=== PATIENT | male | born 1985 | race Caucasian/White ===

== ENCOUNTER 2025-06-15 18:08 | Inpatient (IN) | payer MEDICARE, MEDICAID, SELFPAY ==
[2025-06-15] VITALS (8 sets, daily range): BP systolic 140–149; BP diastolic 87–92; PULSE 83–111; RESP 17–98; TEMP 36.6–36.8; O2SAT 93–99; BMI 29.2
--- NOTE | 2025-06-15 18:17 | PD.EDADULT ---
ED General RME/HPI General Chief complaint: Seizure Stated complaint: Seizures Time Seen by Provider: 06/15/25 18:15 Arrival date/time: 06/15/25 18:08 CC: Seizure, hypoglycemia HPI patient has a history of seizures is on Keppra 750 mg tablets 2 twice a day, as well as Vimpat. Last seizure was approximately 1 year ago. EMS report finding him postictal blood glucose was 19, patient was given D10 recheck was 190 currently the patient is awake alert oriented nontoxic-appearing does not have any postictal symptoms. States he is on sliding scale for his diabetes and they have been adjusting his medications . Patient denies any physical pain at this time. Patient his primary care doctor is with [facility] Note: Patient took all of his prescribed morning medications including Keppra and Vimpat Related Data Home Medications ?Medication ?Instructions ?Recorded ?Confirmed Albuterol Sulfate HFA (INHALER) 2 puff inhalation Q6HR PRN 11/30/14 05/02/18 (PROVENTIL HFA (INHALER)) BREATHING #0 inhalations Amylase/Lipase/Protease (Creon Dr 5 tab PO QDWM #0 caps 11/30/14 05/02/18 24,000 Units Capsule) Hydrocodone/Acetaminophen (Lortab 1 ea PO Q4HR #0 tabs 11/30/14 05/02/18 10-325 mg Tablet) Promethazine Hcl/Dextromethorphan 1 tsp PO Q4-6HRPRN PRN COUGHING ##0 11/30/14 05/02/18 SYRUP * (PHENERGAN DM SYRUP *) Tobramycin NEB * (DAYSI 300 MG/5 ML 300 mg inhalation BID #0 ea 11/30/14 05/02/18 *) albuterol sulfate 90 mcg/actuation 2 puff inhalation TID ##0 11/30/14 05/02/18 aerosol inhaler (ProAir HFA) carbamazepine 200 mg tablet 200 mg PO TID ##0 11/30/14 05/02/18 (Epitol) dornase sushil 1 mg/mL solution for 2.5 mg inhalation QDAY ##0 11/30/14 05/02/18 inhalation (Pulmozyme) levetiracetam 250 mg tablet 100 mg PO TID #0 tabs 11/30/14 05/02/18 (Keppra) metformin 500 mg tablet 1,000 mg PO BIDAC #0 tabs 11/30/14 05/02/18 (Glucophage) montelukast 10 mg tablet 10 mg PO HS #0 tabs 11/30/14 05/02/18 (Singulair) naproxen 500 mg tablet (Naprosyn) 500 mg PO BIDWM #0 tabs 11/30/14 05/02/18 Nutritional Formula (Lactose Free) 1 can PO QID 30 days ##0 12/08/14 05/02/18 * (GLUCERNA *) Amylase/Lipase/Protease (Creon Dr 4 cap PO BIDWM ##0 05/15/17 05/02/18 24,000 Units Capsule) Previous Rx's ?Medication ?Instructions ?Recorded cyclobenzaprine 10 mg tablet 10 mg PO TID #20 tabs 03/27/23 meloxicam 7.5 mg tablet 7.5 mg PO QDAY #10 tabs 03/27/23 Allergies Allergy/AdvReac Type Severity Reaction Status Date / Time ciprofloxacin Allergy Unknown Verified 09/18/21 18:05 levofloxacin Allergy Unknown Verified 09/18/21 18:05 Review of Systems Review of Systems Narrative Review of Systems: GEN: No fever, no chills, no weight loss EYES: No discharge, no visual changes, no pain HEENT: No ear pain, no congestion, no sore throat PULM: No shortness of breath, no cough, no congestion CV: No chest pain, no dyspnea on exertion, no palpitations GI: No nausea, no vomiting, no diarrhea, no pain, no constipation : No frequency, no urgency, no dysuria MUSC/SKEL: No joint pain, no back pain SKIN: No rash PSYCH: No hallucinations, no depression HEME/LYMPH: No easy bleeding or bruising tendencies NEURO: No weakness, no headache Past Medical History Past Medical History NEUROLOGIC: Positive Neurological Disorders and Epilepsy CARDIAC: Negative Congestive Heart Failure RESPIRATORY: Positive Cystic Fibrosis; Negative Chronic Obstructive Pulmonary Disease (COPD) GENITOURINARY: Negative Renal Disease ENDOCRINE: Positive Diabetes Mellitus Type 1; Negative Diabetes Mellitus Type 2 Surgical History SURGICAL: Positive Abdominal Surgery and Bowel Surgery Social History SMOKING STATUS: Never smoker ED Exam Narrative Physical exam: [General: Appears not in any acute distress Head normocephalic HEENT: Within acceptable limits Neck is supple nontender Chest equal chest rise nontender to palpation Respiratory: Clear to auscultation no wheezes crackles or rubs CV: Rate rhythm is regular no murmurs rubs or clicks Abdomen is soft nontender no masses positive bowel sounds all 4 quadrants Back: No CVA tenderness no spinous process tenderness from cervical spine thoracic and lumbar spine Skin: Intact no petechiae rash induration ulceration or crepitus Extremities: Moving all extremity against resistance cap refill less than 2 seconds neurosensory intact Neuro: Awake alert oriented x3 Glascow coma 15 no focal deficits] Course Course Course Narrative: Upon initial assessment after EMS the patient's blood glucose was 194. At 1845 patient's blood sugar dropped to 31, patient was given 1 amp of D50 started on D5 at 125 an hour. At 1950, blood sugar is 85. This time is concerned as the patient had received an amp of D50 and is on D5 at 125 an hour when anticipating the sugar being much higher. Patient's case discussed with Dr. Young, attending who agrees patient needs to be admitted for hypoglycemia. Quality Measures none Orders Category Date Time Status Glucose [Bedside Blood Glucose] Q1HR Care 06/15/25 18:15 Active B-Type Natriuretic Peptide Stat Lab 06/15/25 18:36 Completed CBC Stat Lab 06/15/25 18:36 Completed Comprehensive Metabolic Panel Stat Lab 06/15/25 18:36 Completed Drug Screen,Urine Stat Lab 06/15/25 18:16 Ordered LDH (Lactate Dehydrogenase) Stat Lab 06/15/25 18:36 Completed Magnesium Stat Lab 06/15/25 18:36 Completed Urinalysis, C/S if Indicated Stat Lab 06/15/25 18:16 Ordered Dextrose 5%-0.45% Ns [D5-1/2Ns] 500 ml Med 06/15/25 18:45 Active IV 125 mls/hr Dextrose 50% Syr [D50w Syringe Abboject] Med 06/15/25 18:46 Discontinued 50 ml .ROUTE .STK-MED ONE Dextrose 50% Syr [D50w Syringe Abboject] Med 06/15/25 18:44 Discontinued 50 ml IVP X1 ONE levETIRAcetam INJ [Keppra Inj] Med 06/15/25 18:31 Discontinued 1,000 mg IVP X1 ONE Vital Signs Vital signs: Vital Signs Temperature 97.8 F 06/15/25 18:54 Pulse Rate 87 06/15/25 18:54 Respiratory Rate 17 06/15/25 18:54 Blood Pressure 142/87 H 06/15/25 18:54 Pulse Oximetry (%) 96 06/15/25 18:54 Oxygen Delivery Method Room Air 06/15/25 18:54 Discharge Plan Plan Patient Disposition: HOME (Self Care) Patient condition on transfer: Stable Prescriptions/Referrals Prescriptions/Med Rec: No Action Albuterol Sulfate HFA (INHALER) (PROVENTIL HFA (INHALER)) 8.5 GM HFA.AER.AD 2 puff Inhalation Q6HR PRN (Reason: BREATHING) Qty: 0 Amylase/Lipase/Protease (Trace Mccormick 24,000 Units Capsule) 1 EACH CAPSULE. 5 tab PO QDWM Qty: 0 metformin [Glucophage] 500 MG tablet 1,000 mg PO BIDAC Qty: 0 carbamazepine [Epitol] 200 MG tablet 200 mg PO TID Qty: 0 levetiracetam [Keppra] 250 MG tablet 100 mg PO TID Qty: 0 montelukast [Singulair] 10 MG tablet 10 mg PO HS Qty: 0 albuterol sulfate [ProAir HFA] 8.5 GM HFA aerosol inhaler 2 puff Inhalation TID Qty: 0 naproxen [Naprosyn] 500 MG tablet 500 mg PO BIDWM Qty: 0 Patient Comments: PRN PAIN Hydrocodone/Acetaminophen (Lortab 10-325 mg Tablet) 1 EACH tablet 1 ea PO Q4HR Qty: 0 Promethazine Hcl/Dextromethorphan SYRUP * (PHENERGAN DM SYRUP *) 473 ML syrup 1 tsp PO Q4-6HRPRN PRN (Reason: COUGHING) Qty: 0 dornase sushil [Pulmozyme] 1 MG/ML solution 2.5 mg Inhalation QDAY Qty: 0 Tobramycin NEB * (DAYSI 300 MG/5 ML *) 300 MG/5 ML AMPUL.NEB. 300 mg Inhalation BID Qty: 0 Nutritional Formula (Lactose Free) * (GLUCERNA *) 237 ML liquid 1 can PO QID 30 Days Qty: 0 Amylase/Lipase/Protease (Trace Mccormick 24,000 Units Capsule) 1 EACH CAPSULE.DR 4 cap PO BIDWM Qty: 0 cyclobenzaprine 10 mg tablet 10 mg PO TID Qty: 20 0RF meloxicam 7.5 mg tablet 7.5 mg PO QDAY Qty: 10 0RF Referrals: Jamaica Weber PA-C [Primary Care Provider] - In 1 week Problem List Clinical Impression: Seizure, Hypoglycemia Patient/Caregiver Discharge Instructions Print Language: [place] Stand Alone Forms: Nadine Award Info., Patient Portal Info Letter FANTASMA/LATONYA Supervising Physician FANTASMA/LATONYA Supervising Physician: Jamaal Canchola ENP [facility] Clinical Information Provided by patient and EMS [facility] Chronic Illness/Social Conditions Add or document further as needed: Diabetes seizure disorder Medication Administration(s) Medication Administration History Dextrose/Sodium Chloride (D5-1/2ns) 500 mls @ 125 mls/hr IV .Q4H MAIDA Stop: 07/15/25 18:44 Last Admin: 06/15/25 19:01 Dose: 125 mls/hr Documented By: MEGHA Discontinued Medications Dextrose (Dextrose 50%-Water Inj 50 Ml Syringe) 50 ml IVP X1 ONE Stop: 06/15/25 18:45 Last Admin: 06/15/25 18:50 Dose: 50 ml Documented By: MEGHA Dextrose (Dextrose 50%-Water Inj 50 Ml Syringe) Confirm Administered Dose 50 ml .ROUTE .STK-MED ONE Stop: 06/15/25 18:47 Last Admin: 06/15/25 19:03 Dose: Not Given Documented By: MEGHA Non-Admin Reason: Duplicate Medication on eMAR Levetiracetam (Levetiracetam Inj 100 Mg/Ml Vial 5ml) 1,000 mg IVP X1 ONE Stop: 06/15/25 18:32 Last Admin: 06/15/25 19:01 Dose: 1,000 mg Documented By: MEGHA
[2025-06-15] MEDS: DEXTROSE 50%-WATER INJ 50 ML SYRINGE IVP (18:50)
[2025-06-15 18:52] LABS: Basophils # (Auto) 0.1 Thou/mm3 (0.0-0.2); Basophils % (Auto) 0 % (0-2.5); Eosinophils # (Auto) 0.2 Thou/mm3 (0.0-0.5); Eosinophils % (Auto) 1 % (0-10); Hematocrit 41.3 % (41.0-53.0); Hemoglobin 14.4 g/dL (13.5-16.0); Immature Granulocytes Auto 0.06 Thou/mm3 (0.00-0.00); Lymphocytes # (Auto) 2.3 Thou/mm3 (1.0-4.8); Lymphocytes % (Auto) 16 % (10-50); Mean Corpuscular HGB Conc 34.9 g/dl (31.0-37.0); Mean Corpuscular Hemoglobin 30.7 pg (25.0-35.0); Mean Corpuscular Volume 88 fL (80-100); Monocytes # (Auto) 1.0 Thou/mm3 (0.0-0.8); Monocytes % (Auto) 7 % (0-12); Neutrophils # (Auto) 10.7 Thou/mm3 (1.8-7.7); Neutrophils % (Auto) 75 % (37-80); Nucleated Red Blood Cell # 0.00 Thou/mm3 (0.00-0.00); Nucleated Red Blood Cell % 0 /100 WBC (0); Platelet Count 315 Thou/mm3 (140-440); RDW Standard Deviation 39.7 fL (35.1-43.9); Red Blood Count 4.69 Miln/mm3 (4.50-5.90); White Blood Count 14.4 Thou/mm3 (3.8-10.6)
[2025-06-15] MEDS: DEXTROSE 5%-0.45% NS 500 ML 125 ML IV (19:01)
[2025-06-15] MEDS: levETIRAcetam INJ 100 MG/ML VIAL 5ML 1000 MG IVP (19:01)
--- NOTE | 2025-06-15 19:14 | PC.NURSE ---
Pt BIBA from home after having a tonic clonic seizure for about 30 seconds witnessed by bystanders. When EMS arrived to the house, pt had another tonic clonic for 2-3 minutes witnessed by EMS. Ems got a bs of 19 on seen, gave 250 d10, got second bs of 196. EMS also gave IM versed. Pt GCS 15 after corrected BS. Once arrived pt stated to me that he felt fine, and that his insulin had been increased by his doctor 2 days ago. While speaking with the pt he stated that he was feeling hot, I noticed he was clamy, checked his BS with results of 29 on the right had 33 on the left. Immediately informed the provider, got order for and administered 1 amp of D50. Pt never lost consciousness nor started having seizure activity while I was at bedside. Pt stated he takes a total of 3000 keppra daily and Vimpat (unsure of dose) as well. Also informed me that he has cystic fibrosis which cause his diabetes to be different . Pt is hooked up to all monitors, no signs of distress at this time after the D50, also hung a bag of D%NS.45
[2025-06-15 19:16] LABS: B-Type Natriuretic Peptide < 20 pg/mL (0-100)
[2025-06-15 19:23] LABS: Alanine Aminotransferase 30 U/L (10-49); Albumin, Serum 4.4 gm/dL (3.5-5.0); Albumin/Globulin Ratio 1.4 (1.2-2.2); Alkaline Phosphatase 98 U/L (46-116); Anion Gap 10 (7-16); Aspartate Amino Transferase 30 U/L (0-34); BUN/Creatinine Ratio 9 Ratio (12-20); Bilirubin,Total 0.3 mg/dL (0.3-1.2); Blood Urea Nitrogen 7 mg/dL (9-23); Calcium 9.8 mg/dL (8.3-10.6); Calcium (Corrected) 9.8 mg/dL (8.5-10.1); Carbon Dioxide 30.2 mMol/L (20.0-31.0); Chloride 100 mMol/L (98-107); Creatinine (Component) 0.8 mg/dL (0.6-1.3); Estimated Creatinine Clearance 114.1 mL/min (>60); Globulin 3.1 gm/dL (2.3-3.5); LDH (Lactate Dehydrogenase) 206 U/L (120-246); Magnesium 1.7 mg/dL (1.6-2.6); Potassium 3.2 mMol/L (3.4-5.1); Sodium 140 mMol/L (136-145); Total Protein 7.5 gm/dL (5.7-8.2); eGFR > 60 See Note
[2025-06-15 19:26] LABS: Osmolality,Calculated 273 (275-295)
[2025-06-15 19:29] LABS: Glucose 26 mg/dL (74-106)
[2025-06-15] MEDS: DEXTROSE 10%-WATER 1000 ML 1,000 ML 50 ML IV (20:46)
[2025-06-15] MEDS: IBUPROFEN TAB 400 MG TABLET 800 MG PO (20:56)
[2025-06-15] MEDS: LACOSAMIDE 50 MG TABLET PO (20:56)
[2025-06-15] MEDS: POTASSIUM CHL 10 mEq IVPB 10 MEQ/100 ML BAG 100 MEQ IV (21:09)
--- NOTE | 2025-06-15 21:15 | ESHP_ITS ---
Documentation for date of: 06/15/25 HPI History of Present Illness History of present illness: The patient is a 39-year-old male with a past medical history significant for seizure disorder (on Keppra and Vimpat) and cystic fibrosis, who presented to the ED after a witnessed seizure and loss of consciousness. Upon evaluation, the patient was alert and oriented x3, able to answer questions appropriately. He reported being out with friends when he began to feel dizzy, followed by profuse sweating and loss of consciousness. He does not recall any prodromal symptoms. Witnesses, including his , reported seizure activity shortly after he collapsed. EMS was called and found the patient post-ictal with a blood glucose of 19 mg/dL. He was treated with D10, and repeat glucose on ED arrival was 190 mg/dL. The patient was awake, alert, and non-toxic on ED arrival. He reported being followed by endocrinology in [place] for diabetes management. Recently, due to persistently elevated glucose levels (~300 mg/dL), his Tresiba dose was increased from 20 to 28 units, and NovoLog sliding scale was also adjusted. These medication changes occurred on Monday; he took his first 28-unit dose of Tresiba on Monday without issues. However, on Monday morning, after taking both Tresiba and NovoLog, he went out with friends and subsequently developed the symptoms described above. However, upon reviewing the home medication list, it is difficult to determine the exact insulin regimen and the extent of the recent dosage adjustments. Initially, the patient reported that the dose was increased from 5 units to 25 units, but in a subsequent conversation, he stated that the dose was changed from 20 units to 26 units. This needs to be clarified with his systems support officer (Dr. White). Thepaln is to follow up with the endocrinology office to obtain accurate medication records and adjust the insulin regimen accordingly. Patient also stated that he is in the process of getting CGM, pending insurance authorization. For cystic fibrosis patient is following pulmonology in [place], stated that the pulmonology is planning to place him on transplant list. For now patient is very compliant with all the cystic fibrosis medication. On arrival:Hemodynamically stableWBC: 14.4 Glucose: 26 mg/dLChemistry otherwise unremarkable, milk hypokalemia, In the ED, the patient was treated with:Keppra loading doseDextrose 50 push.Started on D5/NS drip Initially, the hospitalist team was consulted for floor admission. However, due to the severity of the hypoglycemia, recent seizure, and need for frequent glucose monitoring, the decision was made to admit to the ICU for close monitoring and continued management of symptomatic hypoglycemia. Past medical history as above Past surgical history, colectomy Allergies ciprofloxacin and levofloxacin Social history patient denies any drinking, smoking, recreational drug use, patient lives with the Family history significant for heart attack. Review of Systems Review of Systems Systems Reviewed: All systems reviewed, normal except as documented Past Medical History Past Medical History NEUROLOGIC: Positive Neurological Disorders and Epilepsy CARDIAC: Negative Congestive Heart Failure RESPIRATORY: Positive Cystic Fibrosis; Negative Chronic Obstructive Pulmonary Disease (COPD) GENITOURINARY: Negative Renal Disease ENDOCRINE: Positive Diabetes Mellitus Type 1; Negative Diabetes Mellitus Type 2 Surgical History SURGICAL: Positive Abdominal Surgery and Bowel Surgery Social History SMOKING STATUS: Never smoker Exam Vital Signs Temp Pulse Resp BP Pulse Ox O2 Del Method 97.8 F 87 17 142/87 H 96 Room Air 06/15/25 18:54 06/15/25 18:54 06/15/25 18:54 06/15/25 18:54 06/15/25 18:54 06/15/25 18:54 Narrative Exam GENERAL: no acute distress, AAO x3, well nourished. HEENT: Head AT/ NC. Mucous membranes moist. Poor oral hygiene, NECK: Supple, no lymphadenopathy, no carotid bruits. CARDIOVASCULAR: RRR. Normal S1/S2, No m/r/g. No pitting edema of bilateral LEs. RESPIRATORY: CTAB. No wheezing, rhonchi, crackles. GASTROINTESTINAL: Abdomen soft, non tender no palpable masses. longitudinal scar noted on the right side. Bowel sounds present in all 4 quadrants. MUSCULOSKELETAL:? No cyanosis or edema, no visible joint swelling. NEUROLOGICAL: CN II-XII grossly intact. No focal deficits. Sensation intact, symmetric. PSYCHIATRIC: Awake and alert, not agitated, normal mood and affect. INTEGUMENTARY: No obvious rashes, no jaundice, normal turgor. Results: Labs 06/15/25 18:36 06/15/25 18:36 Labs: Short CBC 06/15/25 Range/Units 18:36 WBC 14.4 H (3.8-10.6) Thou/mm3 Hgb 14.4 (13.5-16.0) g/dL Hct 41.3 (41.0-53.0) % Plt Count 315 (140-440) Thou/mm3 BMP 06/15/25 18:36 Sodium 140 Potassium 3.2 L Chloride 100 Carbon Dioxide 30.2 BUN 7 L Creatinine 0.8 Glucose 26 L* Calcium 9.8 Liver Function 06/15/25 Range/Units 18:36 Total Bilirubin 0.3 (0.3-1.2) mg/dL AST 30 (0-34) U/L ALT 30 (10-49) U/L Alkaline Phosphatase 98 (46-116) U/L Albumin 4.4 (3.5-5.0) gm/dL Quality Measures Quality Measures VTE prophylaxis Medications Home Medications and Allergies Home Medications ?Medication ?Instructions ?Recorded ?Confirmed ?Type Albuterol Sulfate HFA (INHALER) 2 puff inhalation Q6HR PRN 11/30/14 05/02/18 History (PROVENTIL HFA (INHALER)) BREATHING #0 inhalations Amylase/Lipase/Protease (Creon Dr 5 tab PO QDWM #0 cap s 11/30/14 05/02/18 History 24,000 Units Capsule) Hydrocodone/Acetaminophen (Lortab 1 ea PO Q4HR #0 tabs 11/30/14 05/02/18 History 10-325 mg Tablet) Promethazine Hcl/Dextromethorphan 1 tsp PO Q4-6HRPRN P RN COUGHING ##0 11/30/14 05/02/18 History SYRUP * (PHENERGAN DM SYRUP *) Tobramycin NEB * (DAYSI 300 MG/5 ML 300 mg inhalation B ID #0 ea 11/30/14 05/02/18 History *) albuterol sulfate 90 mcg/actuation 2 puff inhalation T ID ##0 11/30/14 05/02/18 History aerosol inhaler (ProAir HFA) carbamazepine 200 mg tablet 200 mg PO TID ##0 11/30/14 05/02/18 History (Epitol) dornase sushil 1 mg/mL solution for 2.5 mg inhalation QD AY ##0 11/30/14 06/15/25 History inhalation (Pulmozyme) levetiracetam 250 mg tablet 100 mg PO TID #0 tabs 11/1005/02/18 History (Keppra) metformin 500 mg tablet 1,000 mg PO BIDAC #0 tabs 05/02/18 History (Glucophage) montelukast 10 mg tablet 10 mg PO HS #0 tabs 11/30/14 06/15/25 History (Singulair) naproxen 500 mg tablet (Naprosyn) 500 mg PO BIDWM #0 t abs 11/30/14 05/02/18 History Nutritional Formula (Lactose Free) 1 can PO QID 30 day s ##0 12/08/14 05/02/18 History * (GLUCERNA *) Amylase/Lipase/Protease (Trace Mccormick 4 cap PO BIDWM ##0 0 05/15/17 05/02/18 History 24,000 Units Capsule) quetiapine 100 mg tablet 100 mg PO .qhs insomnia 0905/0206/15/25 History vanzacaftor 10 mg-tezacaftor 50 2 tab PO QDAY 06/15/25 06/15/25 History mg-deutivacaftor 125 mg tablet (Alyftrek) Allergies Allergy/AdvReac Type Severity Reaction Status Date / Time ciprofloxacin Allergy Unknown Verified 09/18/21 18:05 levofloxacin Allergy Unknown Verified 09/18/21 18:05 Visit Medications Acetaminophen (Acetaminophen 325 Mg Tablet) 650 mg PO Q6H PRN PRN Reason: PAIN OR FEVER > 101 Stop: 07/15/25 21:04 Heparin Sodium (Porcine) (Heparin Sod Inj 5000 Unit/Ml Vial) 5,000 unit SC Q8HR MAIDA Stop: 06/29/25 21:59 Dextrose (D10w 1000 Ml) 1,000 mls @ 50 mls/hr IV .Q20H MAIDA Stop: 06/16/25 16:32 Last Admin: 06/15/25 20:46 Dose: 50 mls/hr Potassium Chloride (Kcl Ivpb) 10 meq in 100 mls @ 100 mls/hr IV Q1H MAIDA Stop: 06/16/25 00:44 Last Admin: 06/15/25 21:09 Dose: 100 mls/hr Lacosamide (Lacosamide 50 Mg Tablet) 50 mg PO BID MAIDA Stop: 07/15/25 20:59 Last Admin: 06/15/25 20:56 Dose: 50 mg Levalbuterol HCl (Levalbuterol Rt 0.63 Mg/3 Ml Nebu) 0.63 mg INH Q8HR MAIDA Stop: 07/15/25 21:59 Levetiracetam (Levetiracetam 250 Mg Tablet) 1,500 mg PO BID MAIDA Stop: 07/16/25 08:59 Montelukast Sodium (Montelukast Sodium 10 Mg Tablet) 10 mg PO HS MAIDA Stop: 07/15/25 20:59 Ondansetron HCl (Ondansetron Inj 2 Mg/Ml Inj 2 Ml) 4 mg IVP Q6H PRN; Protocol PRN Reason: NAUSEA OR VOMITING Stop: 07/15/25 21:04 Discontinued Medications Acetaminophen (Acetaminophen 325 Mg Tablet) 650 mg PO X1 ONE Stop: 06/15/25 20:40 Last Admin: 06/15/25 21:10 Dose: Not Given Dextrose (Dextrose 50%-Water Inj 50 Ml Syringe) 50 ml IVP X1 ONE Stop: 06/15/25 18:45 Last Admin: 06/15/25 18:50 Dose: 50 ml Dextrose/Sodium Chloride (D5-1/2ns) 500 mls @ 125 mls/hr IV .Q4H MAIDA Stop: 07/15/25 18:44 Last Infusion: 06/15/25 20:42 Dose: Infused Ibuprofen (Ibuprofen Tab 400 Mg Tablet) 800 mg PO X1 ONE Stop: 06/15/25 20:42 Last Admin: 06/15/25 20:56 Dose: 800 mg Levetiracetam (Levetiracetam Inj 100 Mg/Ml Vial 5ml) 1,000 mg IVP X1 ONE Stop: 06/15/25 18:32 Last Admin: 06/15/25 19:01 Dose: 1,000 mg Potassium Chloride (Potassium Chloride 20 Meq Tabcr) 40 meq PO X1 ONE Stop: 06/15/25 20:38 Last Admin: 06/15/25 20:57 Dose: 40 meq Assessment & Plan Assessment 39-year-old male with past medical history of cystic fibrosis, seizure disorder, DM type I was admitted for symptomatic hypoglycemia treatment management requiring frequent glucose checks. [employer] #Hypoglycemia induced seizure #Witnessed seizure follow-up hypoglycemia, resolved generalized tonic-clonic described by and friends #Hx of Seizure(on keppra and Vimpat) DDx would include primary seizures versus hypoglycemia induced No postictal confusion noted at ED, patient is alert oriented x 3 No focal neurological deficit GCS of 15 In ED patient received loading dose of Keppra -Continue neurocheck every 4 hours - Seizure precaution - Head of bed elevation 30% - Consider head CT and EEG if clinical status changes - Treat underlying hypoglycemia CVS No active disease Respiratory #Cystic fibrosis No respiratory distress noted, patient is saturating 97% on room air, lungs are clear to auscultation -Continue cystic fibrosis medication, pending med rec's, will provide home medication -Chest x-ray -Oxygen as needed GI No acute disease Renal Hypokalemia secondary to the insulin injection Patient was given potassium -Monitor electrolytes, replace as needed -Avoid nephrotoxins -Monitor urine output Endocrinology #Hypoglycemia secondary to insulin administration #DM Type 1 Discrepancy in reported insulin dosing, initially stated 5 to 25 units, later stated 20 to 26 units of Tresiba Patient is on NovoLog sliding scale which was recently increased Last insulin dose taken prior to event Glucose on EMS arrival 19 Glucose on ED arrival 190, last glucose was 26 -Patient was admitted to ICU for frequent glucose check -Hold all home diabetic medications, including insulins -Continue D10 W, close monitor every 1 hour for the first 6 hours, then every 2- 4 hour -Plan is to follow-up with Dr. White endocrinology to clarify exact insulin regimen -Adjust insulin dosing based on requirement -Consider octreotide subcu injection if blood glucose remains low despite D10W Hematology #Leukocytosis most likely reactive Patient is afebrile no signs of infection -Continue to monitor ID No active disease Disposition: ICU DVT prophylaxis: Heparin GI prophylaxis: None Diet: Full liquid Lines: PIV CODE STATUS:Full code Patient care was discussed with attending physician Dr. Connie Montes MD PGY-3 Attending Provider Attestation/Addendum After examination of the patient and review of the clinical data I feel that this patient needs admission to the hospital for further treatment/evaluation. TOTAL CC TIME: 45 MIN TOTAL TIME: 45 Minutes of direct medical management and planning of care. I Marge Rosales MD, attest that I was physically present for irby portions of evaluation, and examined patient, labs and imagings and plan of care were discussed with IM residents team, and I agree with the findings and plans documented above.
[2025-06-15 22:15] LABS: Collection Type, Urine Clean Catch; RBC,Urine 0 /hpf (0-3)
[2025-06-15 22:26] LABS: Troponin I < 0.020 ng/mL (0.0-0.045)
[2025-06-15 22:28] LABS: Amphetamine/Methamp Scrn,U Negative (Negative); Barbiturate Screen,Urine Negative (Negative); Benzodiazepines Screen,Urine Positive (Negative); Benzoylecgonine Screen, Ur Negative (Negative); Fentanyl Screen,Urine Negative (Negative); Opiate Screen,Urine Negative (Negative); THC Screen,Urine Negative (Negative)
[2025-06-15 22:50] LABS: Bilirubin,Urine Negative (Negative); Blood,Urine Negative (Negative); Clarity,Urine Clear (Clear/Hazy); Color,Urine Lt-Yellow (Lt Yel-Yel); Culture Indicated,Urine Not Indicated; Glucose, Urine 3+ (Negative); Ketones,Urine Negative (Negative); Leukocyte Esterase,Urine Negative (Negative); Nitrite,Urine Negative (Negative); PH,Urine 6.5 (5.0-7.0); Protein,Urine Negative (Neg - Trace); Specific Gravity,Urine 1.014 (1.001-1.035); Squamous Epithelial Cell,Urine < 1 /hpf (0-5); Urobilinogen,Urine Negative mg/dL (0.0-1.0); WBC,Urine 2 /hpf (0-5)
[2025-06-15] MEDS: MONTELUKAST SODIUM 10 MG TABLET PO (23:00)
[2025-06-15] MEDS: LEVALBUTEROL RT 0.63 MG/3 ML NEBU INH (23:01)
[2025-06-15] MEDS: POTASSIUM CHL 10 mEq IVPB 10 MEQ/100 ML BAG 50 MEQ IV (23:02)
[2025-06-15] MEDS: HEPARIN SOD INJ 5000 UNIT/ML VIAL SC (23:07)
[2025-06-16] VITALS (24 sets, daily range): BP systolic 117–150; BP diastolic 72–115; PULSE 71–103; RESP 15–99; TEMP 36.1–36.8; O2SAT 96–100; BMI 31.0; BMI 30.9
--- NOTE | 2025-06-16 00:18 | PC.NURSE ---
Unable to complete med rec at this time, med list incomplete, patient stated will bring med list in AM
[2025-06-16] MEDS: POTASSIUM CHL 10 mEq IVPB 10 MEQ/100 ML BAG 50 MEQ IV ×2 (00:33→02:36)
[2025-06-16] MEDS: DEXTROSE 10%-WATER 1000 ML 1,000 ML 30 ML IV (01:17)
[2025-06-16 05:39] LABS: Basophils # (Auto) 0.0 Thou/mm3 (0.0-0.2); Basophils % (Auto) 0 % (0-2.5); Eosinophils # (Auto) 0.2 Thou/mm3 (0.0-0.5); Eosinophils % (Auto) 2 % (0-10); Hematocrit 39.9 % (41.0-53.0); Hemoglobin 13.7 g/dL (13.5-16.0); Immature Granulocytes Auto 0.01 Thou/mm3 (0.00-0.00); Lymphocytes # (Auto) 2.9 Thou/mm3 (1.0-4.8); Lymphocytes % (Auto) 34 % (10-50); Mean Corpuscular HGB Conc 34.3 g/dl (31.0-37.0); Mean Corpuscular Hemoglobin 30.3 pg (25.0-35.0); Mean Corpuscular Volume 88 fL (80-100); Monocytes # (Auto) 0.6 Thou/mm3 (0.0-0.8); Monocytes % (Auto) 7 % (0-12); Neutrophils # (Auto) 4.8 Thou/mm3 (1.8-7.7); Neutrophils % (Auto) 57 % (37-80); Nucleated Red Blood Cell # 0.00 Thou/mm3 (0.00-0.00); Nucleated Red Blood Cell % 0 /100 WBC (0); Platelet Count 279 Thou/mm3 (140-440); RDW Standard Deviation 40.2 fL (35.1-43.9); Red Blood Count 4.52 Miln/mm3 (4.50-5.90); White Blood Count 8.4 Thou/mm3 (3.8-10.6)
[2025-06-16 05:53] LABS: Glucose Estimated Average 214 mg/dL (80-131); Hemoglobin A1C 9.1 % Hgb (4.8-6.0)
[2025-06-16] MEDS: HEPARIN SOD INJ 5000 UNIT/ML VIAL SC (05:57)
[2025-06-16 06:30] LABS: Cardiac Risk Estimate 3.1 RATIO (4.0-6.7); Cholesterol 150 mg/dL (132-200); HDL Cholesterol 48 mg/dL (40-60); LDL Cholesterol,Calculated 58 mg/dL (0-130); Magnesium 1.8 mg/dL (1.6-2.6); Phosphorous 2.9 mg/dL (2.4-5.1); Thyroid Stimulating Hormone 1.56 uIU/mL (0.55-4.78); Triglycerides 222 mg/dL (30-150)
[2025-06-16] MEDS: LEVALBUTEROL RT 1.25 MG/0.5 ML NEBU INH (07:17)
[2025-06-16] MEDS: SODIUM CHLORIDE RT SOL 0.9% 3 ML NEBU INH ×2 (07:18→15:12)
--- NOTE | 2025-06-16 07:32 | PD.RESPRO ---
Documentation for date of: 06/16/25 Subjective Subjective Interval history: The patient is a 39-year-old male with a past medical history significant for seizure disorder (on Keppra and Vimpat) and cystic fibrosis, who presented to the ED after a witnessed seizure and loss of consciousness. Upon evaluation, the patient was alert and oriented x3, able to answer questions appropriately. He reported being out with friends when he began to feel dizzy, followed by profuse sweating and loss of consciousness. He does not recall any prodromal symptoms. Witnesses, including his , reported seizure activity shortly after he collapsed. EMS was called and found the patient post-ictal with a blood glucose of 19 mg/dL. He was treated with D10, and repeat glucose on ED arrival was 190 mg/dL. The patient was awake, alert, and non-toxic on ED arrival. He reported being followed by endocrinology in [place] for diabetes management. Recently, due to persistently elevated glucose levels (~300 mg/dL), his Tresiba dose was increased from 20 to 28 units, and NovoLog sliding scale was also adjusted. These medication changes occurred on Monday; he took his first 28-unit dose of Tresiba on Monday without issues. However, on Monday morning, after taking both Tresiba and NovoLog, he went out with friends and subsequently developed the symptoms described above. However, upon reviewing the home medication list, it is difficult to determine the exact insulin regimen and the extent of the recent dosage adjustments. Initially, the patient reported that the dose was increased from 5 units to 25 units, but in a subsequent conversation, he stated that the dose was changed from 20 units to 26 units. This needs to be clarified with his relay shop tester (Dr. White). Thepaln is to follow up with the endocrinology office to obtain accurate medication records and adjust the insulin regimen accordingly. Patient also stated that he is in the process of getting CGM, pending insurance authorization. For cystic fibrosis patient is following pulmonology in [place], stated that the pulmonology is planning to place him on transplant list. For now patient is very compliant with all the cystic fibrosis medication. On arrival:Hemodynamically stableWBC: 14.4 Glucose: 26 mg/dLChemistry otherwise unremarkable, milk hypokalemia, In the ED, the patient was treated with:Keppra loading doseDextrose 50 push.Started on D5/NS drip Initially, the hospitalist team was consulted for floor admission. However, due to the severity of the hypoglycemia, recent seizure, and need for frequent glucose monitoring, the decision was made to admit to the ICU for close monitoring and continued management of symptomatic hypoglycemia. 06/16/2025: Overnight patient had no events. Input 1489, output 11.2, balance 369 cc. Blood glucose remained stable between 130?150s overnight. This morning patient says he feels well, alert and oriented x 3. Denies any chest pain/palpitations, diaphoresis or shortness of breath. Labs showed NA 137, K4.6, glucose 127. Resumed patient home medication including Creon, Pulmozyme inhaler, albuterol nebs Q4 hourly and hypertonic saline nebs twice daily. Currently patient is clinically stable for downgrade to telemetry. Exam Vital Signs Temp Pulse Resp BP Pulse Ox O2 Del Method 97.9 F 87 22 H 143/91 H 97 Room Air 06/16/25 04:00 06/16/25 07:17 06/16/25 07:17 06/16/25 06:00 06/16/25 07:17 06/16/25 04:00 Narrative Exam Constitutional Alert, oriented x 3 and comfortable HEENT Vision grossly intact. Patent nares. Trachea midline Respiratory Chest normal on inspection and reduced air entry in all rosario bilaterally, more at bases. Cardiovascular S1 and S2 audible, RRR. No murmurs carotid bruit. No gross JVD. Abdominal Soft and non tender to palpation in all quadrants. BS + Genitourinary No bladder tenderness, no flank pain. Normal to palpation Musculoskeletal Extremities tone within normal limits. No LE edema. Neurological CN II - XII grossly intact. Extremity motor and sensation grossly intact. Skin Warm, dry and intact. No apparent lesions. Psychiatric Patient has good affect, is cooperative Objective Labs 06/17/25 04:48 06/17/25 04:48 Labs: Laboratory Results - last 24 hr 06/15/25 06/15/25 06/15/25 18:36 21:41 22:08 WBC 14.4 H RBC 4.69 Hgb 14.4 Hct 41.3 MCV 88 MCH 30.7 MCHC 34.9 RDW Std Deviation 39.7 Plt Count 315 Neut % (Auto) 75 Lymph % (Auto) 16 Bradley % (Auto) 7 Eos % (Auto) 1 Baso % (Auto) 0 Neut # (Auto) 10.7 H Lymph # (Auto) 2.3 Bradley # (Auto) 1.0 H Eos # (Auto) 0.2 Baso # (Auto) 0.1 Immature Gran # (Auto) 0.06 H Absolute Nucleated RBC 0.00 Immature Gran % 0 Nucleated RBC % 0 Sodium 140 Potassium 3.2 L Chloride 100 Carbon Dioxide 30.2 Anion Gap 10 BUN 7 L Creatinine 0.8 Estim Creat Clear Calc 114.1 eGFR > 60 BUN/Creatinine Ratio 9 L Glucose 26 L* Estimated Ave Glu mg/dL Hemoglobin A1c Calculated Osmolality 273 L Calcium 9.8 Corrected Calcium 9.8 Phosphorus Magnesium 1.7 Total Bilirubin 0.3 AST 30 ALT 30 Alkaline Phosphatase 98 Lactate Dehydrogenase 206 Troponin I < 0.020 B-Natriuretic Peptide < 20 Total Protein 7.5 Albumin 4.4 Globulin 3.1 Albumin/Globulin Ratio 1.4 Triglycerides Cholesterol LDL Cholesterol, Calc HDL Cholesterol Cholesterol/HDL Ratio TSH Ur Collection Type Clean Catch Urine Color Lt-Yellow Urine Clarity Clear Urine pH 6.5 Ur Specific [place] 1.014 Urine Protein Negative Urine Glucose (UA) 3+ A Urine Ketones Negative Urine Blood Negative Urine Nitrite Negative Urine Bilirubin Negative Urine Urobilinogen (Auto) Negative Ur Leukocyte Esterase Negative Urine RBC 0 Urine WBC 2 Ur Squamous Epith Cells < 1 Urine Bacteria None Ur Culture Indicated? Not Indicated Urine Opiates Screen Negative Urine Fentanyl Screen Negative Ur Barbiturates Screen Negative U Amphetamin/Meth Scrn Negative U Benzodiazepines Scrn Positive A U Cocaine Metab Screen Negative U Marijuana (THC) Screen Negative 06/16/25 04:23 WBC 8.4 D RBC 4.52 Hgb 13.7 Hct 39.9 L MCV 88 MCH 30.3 MCHC 34.3 RDW Std Deviation 40.2 Plt Count 279 D Neut % (Auto) 57 Lymph % (Auto) 34 Bradley % (Auto) 7 Eos % (Auto) 2 Baso % (Auto) 0 Neut # (Auto) 4.8 Lymph # (Auto) 2.9 Bradley # (Auto) 0.6 Eos # (Auto) 0.2 Baso # (Auto) 0.0 Immature Gran # (Auto) 0.01 H Absolute Nucleated RBC 0.00 Immature Gran % 0 Nucleated RBC % 0 Sodium Cancelled Potassium Cancelled Chloride Cancelled Carbon Dioxide Cancelled Anion Gap Cancelled BUN Cancelled Creatinine Cancelled Estim Creat Clear Calc Cancelled eGFR Cancelled BUN/Creatinine Ratio Cancelled Glucose Cancelled Estimated Ave Glu mg/dL 214 H Hemoglobin A1c 9.1 H Calculated Osmolality Cancelled Calcium Cancelled Corrected Calcium Cancelled Phosphorus 2.9 Magnesium 1.8 Total Bilirubin Cancelled AST Cancelled ALT Cancelled Alkaline Phosphatase Cancelled Lactate Dehydrogenase Troponin I B-Natriuretic Peptide Total Protein Cancelled Albumin Cancelled Globulin Cancelled Albumin/Globulin Ratio Cancelled Triglycerides 222 H Cholesterol 150 LDL Cholesterol, Calc 58 HDL Cholesterol 48 Cholesterol/HDL Ratio 3.1 L TSH 1.56 Ur Collection Type Urine Color Urine Clarity Urine pH Ur Specific [place] Urine Protein Urine Glucose (UA) Urine Ketones Urine Blood Urine Nitrite Urine Bilirubin Urine Urobilinogen (Auto) Ur Leukocyte Esterase Urine RBC Urine WBC Ur Squamous Epith Cells Urine Bacteria Ur Culture Indicated? Urine Opiates Screen Urine Fentanyl Screen Ur Barbiturates Screen U Amphetamin/Meth Scrn U Benzodiazepines Scrn U Cocaine Metab Screen U Marijuana (THC) Screen Quality Measures Quality Measures VTE prophylaxis Assessment & Plan Assessment Current Active Medications: Generic Name Dose Route Start Last Admin Trade Name Freq PRN Reason Stop Dose Admin Acetaminophen 650 mg 06/15/25 21:05 Acetaminophen 325 Mg Tablet PO 07/15/25 21:04 Q6H PRN PAIN OR FEVER > 101 Dextrose 25 ml 06/15/25 22:08 Dextrose 50%-Water Inj 50 Ml Syringe IV 07/15/25 22:07 Q15MIN PRN BG 50-70 responsive npo pt Dextrose 50 ml 06/15/25 22:08 Dextrose 50%-Water Inj 50 Ml Syringe IV 07/15/25 22:07 Q15MIN PRN BG <50 OR BG <70 & pt unresponsive Glucagon 1 mg 06/15/25 22:08 Glucagon Inj 1 Mg Vial IM Q15MIN PRN BG <70, and no IV access Heparin Sodium (Porcine) 5,000 unit 06/15/25 22:00 06/16/25 05:57 Heparin Sod Inj 5000 Unit/Ml Vial SC 06/29/25 21:59 5,000 unit Q8HR MAIDA Administration Dextrose 1,000 mls @ 30 mls/hr 06/16/25 01:06 06/16/25 06:00 D10w 1000 Ml IV 06/17/25 01:05 30 mls/hr .Q24H MAIDA Infusion Lacosamide 50 mg 06/15/25 21:00 06/15/25 20:56 Lacosamide 50 Mg Tablet PO 07/15/25 20:59 50 mg BID MAIDA Administration Levalbuterol HCl 1.25 mg 06/16/25 07:15 06/16/25 07:17 Levalbuterol Rt 1.25 Mg/0.5 Ml Nebu INH 07/16/25 07:14 1.25 mg Q8HRRT MAIDA Administration Levetiracetam 1,500 mg 06/16/25 09:00 Levetiracetam 250 Mg Tablet PO 07/16/25 08:59 BID MAIDA Montelukast Sodium 10 mg 06/15/25 21:00 06/15/25 23:00 Montelukast Sodium 10 Mg Tablet PO 07/15/25 20:59 10 mg HS MAIDA Administration Ondansetron HCl 4 mg 06/15/25 21:05 Ondansetron Inj 2 Mg/Ml Inj 2 Ml IVP 07/15/25 21:04 Q6H PRN NAUSEA OR VOMITING Protocol Sodium Chloride 3 ml 06/15/25 23:17 06/16/25 07:18 Sodium Chloride Rt Soledad 0.9% 3 Ml Nebu INH 07/15/25 23:16 3 ml PRN PRN Administration SOLN Plan 39-year-old male with past medical history of cystic fibrosis, seizure disorder, DM type I was admitted for symptomatic hypoglycemia treatment management requiring frequent glucose checks. 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 #Hypoglycemia induced seizure?resolved #Hx of Seizure(on keppra and Vimpat) DDx would include primary seizures versus hypoglycemia induced No postictal confusion noted at ED, patient is alert oriented x 3 No focal neurological deficit GCS of 15 In ED patient received loading dose of Keppra Rx: Continue to maintain euglycemia CVS No active disease Respiratory #Cystic fibrosis No respiratory distress noted, patient is saturating 97% on room air, lungs are clear to auscultation Rx: resumed home medication including Pulmozyme inhaler twice daily, albuterol nebulization Q4 hourly, hypertonic saline twice daily. GI No acute disease Renal No active problems Endocrinology #DM Type 1 #Pancreatic insufficiency Discrepancy in reported insulin dosing, initially stated 5 to 25 units, later stated 20 to 26 units of Tresiba Patient is on NovoLog sliding scale which was recently increased Last insulin dose taken prior to event Glucose on EMS arrival 19 Rx: - Resumed insulin sliding scale ? Started on diet and resumed Creon 3 times daily with meals and twice daily with snacks ? Recommend primary team decrease home insulin dose prior to discharge Hematology No acute problems ID No active disease ICU Health maintenance: Dispo: Stable for downgrade to telemetry Diet: Consistent carb, high-protein, high-fiber DVT ppx: None GI ppx: None IV lines: 2 pIV Central line: No Arterial line: No Espinoza: No Code status: FULL CODE Plan of care discussed with Attending Dr. Luisito Matias MD PGY 2 Disclaimer: This note was dictated by speech recognition. Minor errors in plant operator/shift supervisor may be present due to voice recognition software. Attending Provider Attestation/Addendum Patient seen and examined with above resident, Amanuel Matias MD. I agree with the findings, assessment, and plan of care as document except for any differences below. Patient with well-established history of advanced cystic fibrosis with last FEV1 in the low 30s. Patient admitted with seizure activity. Previous known history. Suspected precipitant was hypoglycemia. He has been a brittle diabetic in the recent year so family tells me. Patient has well-established care in [place] with the CF center there. Patient also undergoing early evaluation and consideration for lung transplant. Patient's renal function remained stable. He remains on appropriate therapy including alyftrek. Patient should remain on twice daily dosing of Pulmozyme as well as hypertonic saline. Bronchodilators can be given throughout the rest of the day. Chest physiotherapy should be continued as per his home regimen. He does not seem to have an acute exacerbation at this point. Patient should also remain on home pancreatic enzyme replacement therapy. This will help stabilize his metabolism as well. He did not respond well to available formulary alternative. I did instruct his to ask his significant other to bring his home supply for better results. Patient's hypoglycemia is resolved and he remains on appropriate antiseizure medications. He is stable for transfer back to medicine for monitoring prior to discharge. Patient should follow-up with the CF clinic for long-term management given how brittle his diabetes is and for more holistic approach given that he is nearing threshold for lung transplant. He does have oxygen at home but does not routinely needed except maybe at night on occasion. Total critical care time: I personally spent 35 minutes for review of physiologic parameters, directing plan of care throughout the day, coordination of care with other specialists, and counseling patient and significant other at bedside. This is exclusive of time spent teaching on staff or performing separate billable procedures. Patient remains at significant risk for further morbidity and mortality warranting close monitoring care only in the ICU. Critical care services required for hypoglycemia, seizures, brittle diabetes, and cystic fibrosis with pulmonary and endocrine/exocrine pancreatic dysfunction.
[2025-06-16 08:02] LABS: Anion Gap 10 (7-16); BUN/Creatinine Ratio 10 Ratio (12-20); Blood Urea Nitrogen 7 mg/dL (9-23); Calcium 8.8 mg/dL (8.3-10.6); Carbon Dioxide 26.3 mMol/L (20.0-31.0); Chloride 101 mMol/L (98-107); Creatinine (Component) 0.7 mg/dL (0.6-1.3); Estimated Creatinine Clearance 134.2 mL/min (>60); Glucose 127 mg/dL (74-106); Osmolality,Calculated 273 (275-295); Potassium 4.6 mMol/L (3.4-5.1); Sodium 137 mMol/L (136-145); eGFR > 60 See Note
[2025-06-16] MEDS: LACOSAMIDE 50 MG TABLET PO ×2 (08:56→20:46)
[2025-06-16] MEDS: AMYLASE/LIPASE/PROTEASE CAPSULE (Pancreaze) 8 CAP PO ×3 (09:01→17:22)
[2025-06-16] MEDS: [UNRECOGNIZED DRUG - OTHER] PO (09:42)
[2025-06-16] MEDS: FLUTICASONE/SALMETEROL 500/50 60 DOSE INH 1 PUFF INH ×2 (10:06→20:22)
[2025-06-16] MEDS: DORNASE ALFA 1 MG/ML 2.5 MG INH ×2 (10:06→20:22)
--- NOTE | 2025-06-16 11:43 | ESPR_ITS ---
<Statement entered by Ingrid Padron MD - 06/19/25 14:18> I reviewed above note and agree with findings and plans. I have also personally examined the patient with medicine team and went over assessment and plan with medical team including chemist internship and resident physician. <Statement entered by Boni Duvall MD - 06/16/25 18:31> 39-year-old male with past medical history of cystic fibrosis, seizures who presented for hypoglycemia. Patient initially admitted to ICU for frequent glucose checks and was stabilized in the 130s to 150s on sliding scale insulin. Patient states that he was on 10 units of Tresiba but was increased to 28. Recently by nurse rn bsn. Additionally, he was on 10 units of lispro in a.m. and 8 units at night bolus changed to sliding scale insulin. at bedside and showed sliding scale insulin and per scale, he may have given 12 units. However, per med rec, prescription ordered for degludec 40 units SC every morning. Will need to verify home meds with patient and prior to discharge. ----- Note reviewed and agree with care plan as documented. Please refer to the note below for further details. Plan discussed with attending physician Dr. Nereida Duvall MD PGY-2 Internal Medicine Documentation for date of: 06/16/25 Subjective Subjective Interval history: The patient is a 39-year-old male with a past medical history significant for seizure disorder (on Keppra and Vimpat) and cystic fibrosis, who presented to the ED after a witnessed seizure and loss of consciousness. The patient was awake, alert, and non-toxic on ED arrival. He reported being followed by endocrinology in [place] for diabetes management. Recently, due to persistently elevated glucose levels (~300 mg/dL), his Tresiba dose was increased from 20 to 28 units, and NovoLog sliding scale was also adjusted. These medication changes occurred on Monday; he took his first 28-unit dose of Tresiba on Monday without issues. However, on Monday morning, after taking both Tresiba and NovoLog, he went out with friends and subsequently developed the symptoms described above. However, upon reviewing the home medication list, it is difficult to determine the exact insulin regimen and the extent of the recent dosage adjustments. Initially, the patient reported that the dose was increased from 5 units to 25 units, but in a subsequent conversation, he stated that the dose was changed from 20 units to 26 units. This needs to be clarified with his nurse rn bsn (Dr. White). Thepaln is to follow up with the endocrinology office to obtain accurate medication records and adjust the insulin regimen accordingly. Initially, the hospitalist team was consulted for floor admission. However, due to the severity of the hypoglycemia, recent seizure, and need for frequent glucose monitoring, the decision was made to admit to the ICU for close monitoring and continued management of symptomatic hypoglycemia. Overnight in the ICU the patient had no events. Input 1489, output 11.2, balance 369 cc. Blood glucose remained stable between 130?150s overnight. This morning patient says he feels well, alert and oriented x 3. Denies any chest pain/palpitations, diaphoresis or shortness of breath. Labs showed NA 137, K4.6, glucose 127. Resumed patient home medication including Creon, Pulmozyme inhaler, albuterol nebs Q4 hourly and hypertonic saline nebs twice daily. The patient was clinically stable and was downgraded to telemetry. Upon evaluation by the hospital team, the patient's glucose is still uncontrolled at 254. There remains discrepancy in how the patient is managing his diabetes, as the patient denied taking degludec. Will continue insulin sliding scale and come up with a regimented insulin plan for the patient. Exam Vital Signs Temp Pulse Resp BP Pulse Ox O2 Del Method 97.9 F 100 19 145/92 H 96 Room Air 06/16/25 04:00 06/16/25 10:06 06/16/25 10:06 06/16/25 10:01 06/16/25 10:06/16/25 08:01 Narrative Exam General: Awake and in no acute distress. Conversational and non-toxic appearing. Neurologic: GCS 15. Alert and oriented x3, no gross neurological deficit, and patient able to move all 4 extremities. HEENT: Normocephalic, atraumatic, mucous membranes moist. Pupils reactive to light. Heart: Regular rate and rhythm, normal S1 and S2, no murmurs. Lungs: Decreased breath sounds in the lung bases bilaterally. No wheezing or crackles. Abdomen: Soft, nondistended, nontender, positive bowel sounds. No guarding or rebound tenderness. Extremities: No edema. 2+ radial and dorsalis pedis pulses bilaterally. Skin: Warm. Dry. No rash or ecchymoses. Objective Labs 06/16/25 04:23 06/16/25 04:23 Labs: Laboratory Results - last 24 hr 06/15/25 06/15/25 06/15/25 18:36 21:41 22:08 WBC 14.4 H RBC 4.69 Hgb 14.4 Hct 41.3 MCV 88 MCH 30.7 MCHC 34.9 RDW Std Deviation 39.7 Plt Count 315 Neut % (Auto) 75 Lymph % (Auto) 16 [place] % (Auto) 7 Eos % (Auto) 1 Baso % (Auto) 0 Neut # (Auto) 10.7 H Lymph # (Auto) 2.3 [place] # (Auto) 1.0 H Eos # (Auto) 0.2 Baso # (Auto) 0.1 Immature Gran # (Auto) 0.06 H Absolute Nucleated RBC 0.00 Immature Gran % 0 Nucleated RBC % 0 Sodium 140 Potassium 3.2 L Chloride 100 Carbon Dioxide 30.2 Anion Gap 10 BUN 7 L Creatinine 0.8 Estim Creat Clear Calc 114.1 eGFR > 60 BUN/Creatinine Ratio 9 L Glucose 26 L* Estimated Ave Glu mg/dL Hemoglobin A1c Calculated Osmolality 273 L Calcium 9.8 Corrected Calcium 9.8 Phosphorus Magnesium 1.7 Total Bilirubin 0.3 AST 30 ALT 30 Alkaline Phosphatase 98 Lactate Dehydrogenase 206 Troponin I < 0.020 B-Natriuretic Peptide < 20 Total Protein 7.5 Albumin 4.4 Globulin 3.1 Albumin/Globulin Ratio 1.4 Triglycerides Cholesterol LDL Cholesterol, Calc HDL Cholesterol Cholesterol/HDL Ratio TSH Ur Collection Type Clean Catch Urine Color Lt-Yellow Urine Clarity Clear Urine pH 6.5 Ur Specific [place] 1.014 Urine Protein Negative Urine Glucose (UA) 3+ A Urine Ketones Negative Urine Blood Negative Urine Nitrite Negative Urine Bilirubin Negative Urine Urobilinogen (Auto) Negative Ur Leukocyte Esterase Negative Urine RBC 0 Urine WBC 2 Ur Squamous Epith Cells < 1 Urine Bacteria None Ur Culture Indicated? Not Indicated Urine Opiates Screen Negative Urine Fentanyl Screen Negative Ur Barbiturates Screen Negative U Amphetamin/Meth Scrn Negative U Benzodiazepines Scrn Positive A U Cocaine Metab Screen Negative U Marijuana (THC) Screen Negative 06/16/25 06/16/25 06/16/25 04:23 04:23 04:23 WBC 8.4 D RBC 4.52 Hgb 13.7 Hct 39.9 L MCV 88 MCH 30.3 MCHC 34.3 RDW Std Deviation 40.2 Plt Count 279 D Neut % (Auto) 57 Lymph % (Auto) 34 [place] % (Auto) 7 Eos % (Auto) 2 Baso % (Auto) 0 Neut # (Auto) 4.8 Lymph # (Auto) 2.9 [place] # (Auto) 0.6 Eos # (Auto) 0.2 Baso # (Auto) 0.0 Immature Gran # (Auto) 0.01 H Absolute Nucleated RBC 0.00 Immature Gran % 0 Nucleated RBC % 0 Sodium Cancelled 137 Potassium Cancelled 4.6 D Chloride Cancelled Carbon Dioxide Anion Gap BUN Creatinine Estim Creat Clear Calc eGFR BUN/Creatinine Ratio Glucose Estimated Ave Glu mg/dL Hemoglobin A1c Calculated Osmolality Calcium Corrected Calcium Phosphorus Magnesium Total Bilirubin AST ALT Alkaline Phosphatase Lactate Dehydrogenase Troponin I B-Natriuretic Peptide Total Protein Albumin Globulin Albumin/Globulin Ratio Triglycerides Cholesterol LDL Cholesterol, Calc HDL Cholesterol Cholesterol/HDL Ratio TSH Ur Collection Type Urine Color Urine Clarity Urine pH Ur Specific [place] Urine Protein Urine Glucose (UA) Urine Ketones Urine Blood Urine Nitrite Urine Bilirubin Urine Urobilinogen (Auto) Ur Leukocyte Esterase Urine RBC Urine WBC Ur Squamous Epith Cells Urine Bacteria Ur Culture Indicated? Urine Opiates Screen Urine Fentanyl Screen Ur Barbiturates Screen U Amphetamin/Meth Scrn U Benzodiazepines Scrn U Cocaine Metab Screen U Marijuana (THC) Screen 06/16/25 06/16/25 06/16/25 04:23 04:23 04:23 WBC RBC Hgb Hct MCV MCH MCHC RDW Std Deviation Plt Count Neut % (Auto) Lymph % (Auto) [place] % (Auto) Eos % (Auto) Baso % (Auto) Neut # (Auto) Lymph # (Auto) [place] # (Auto) Eos # (Auto) Baso # (Auto) Immature Gran # (Auto) Absolute Nucleated RBC Immature Gran % Nucleated RBC % Sodium Potassium Chloride 101 Carbon Dioxide Cancelled 26.3 Anion Gap Cancelled 10 BUN Cancelled Creatinine Estim Creat Clear Calc eGFR BUN/Creatinine Ratio Glucose Estimated Ave Glu mg/dL Hemoglobin A1c Calculated Osmolality Calcium Corrected Calcium Phosphorus Magnesium Total Bilirubin AST ALT Alkaline Phosphatase Lactate Dehydrogenase Troponin I B-Natriuretic Peptide Total Protein Albumin Globulin Albumin/Globulin Ratio Triglycerides Cholesterol LDL Cholesterol, Calc HDL Cholesterol Cholesterol/HDL Ratio TSH Ur Collection Type Urine Color Urine Clarity Urine pH Ur Specific [place] Urine Protein Urine Glucose (UA) Urine Ketones Urine Blood Urine Nitrite Urine Bilirubin Urine Urobilinogen (Auto) Ur Leukocyte Esterase Urine RBC Urine WBC Ur Squamous Epith Cells Urine Bacteria Ur Culture Indicated? Urine Opiates Screen Urine Fentanyl Screen Ur Barbiturates Screen U Amphetamin/Meth Scrn U Benzodiazepines Scrn U Cocaine Metab Screen U Marijuana (THC) Screen 06/16/25 06/16/25 06/16/25 04:23 04:23 04:23 WBC RBC Hgb Hct MCV MCH MCHC RDW Std Deviation Plt Count Neut % (Auto) Lymph % (Auto) [place] % (Auto) Eos % (Auto) Baso % (Auto) Neut # (Auto) Lymph # (Auto) [place] # (Auto) Eos # (Auto) Baso # (Auto) Immature Gran # (Auto) Absolute Nucleated RBC Immature Gran % Nucleated RBC % Sodium Potassium Chloride Carbon Dioxide Anion Gap BUN 7 L Creatinine Cancelled 0.7 Estim Creat Clear Calc Cancelled 134.2 eGFR Cancelled BUN/Creatinine Ratio Glucose Estimated Ave Glu mg/dL Hemoglobin A1c Calculated Osmolality Calcium Corrected Calcium Phosphorus Magnesium Total Bilirubin AST ALT Alkaline Phosphatase Lactate Dehydrogenase Troponin I B-Natriuretic Peptide Total Protein Albumin Globulin Albumin/Globulin Ratio Triglycerides Cholesterol LDL Cholesterol, Calc HDL Cholesterol Cholesterol/HDL Ratio TSH Ur Collection Type Urine Color Urine Clarity Urine pH Ur Specific [place] Urine Protein Urine Glucose (UA) Urine Ketones Urine Blood Urine Nitrite Urine Bilirubin Urine Urobilinogen (Auto) Ur Leukocyte Esterase Urine RBC Urine WBC Ur Squamous Epith Cells Urine Bacteria Ur Culture Indicated? Urine Opiates Screen Urine Fentanyl Screen Ur Barbiturates Screen U Amphetamin/Meth Scrn U Benzodiazepines Scrn U Cocaine Metab Screen U Marijuana (THC) Screen 06/16/25 06/16/25 06/16/25 04:23 04:23 04:23 WBC RBC Hgb Hct MCV MCH MCHC RDW Std Deviation Plt Count Neut % (Auto) Lymph % (Auto) [place] % (Auto) Eos % (Auto) Baso % (Auto) Neut # (Auto) Lymph # (Auto) [place] # (Auto) Eos # (Auto) Baso # (Auto) Immature Gran # (Auto) Absolute Nucleated RBC Immature Gran % Nucleated RBC % Sodium Potassium Chloride Carbon Dioxide Anion Gap BUN Creatinine Estim Creat Clear Calc eGFR > 60 BUN/Creatinine Ratio Cancelled 10 L Glucose Cancelled [address] Glu mg/dL 214 H Hemoglobin A1c 9.1 H Calculated Osmolality Cancelled Calcium Corrected Calcium Phosphorus Magnesium Total Bilirubin AST ALT Alkaline Phosphatase Lactate Dehydrogenase Troponin I B-Natriuretic Peptide Total Protein Albumin Globulin Albumin/Globulin Ratio Triglycerides Cholesterol LDL Cholesterol, Calc HDL Cholesterol Cholesterol/HDL Ratio TSH Ur Collection Type Urine Color Urine Clarity Urine pH Ur Specific [place] Urine Protein Urine Glucose (UA) Urine Ketones Urine Blood Urine Nitrite Urine Bilirubin Urine Urobilinogen (Auto) Ur Leukocyte Esterase Urine RBC Urine WBC Ur Squamous Epith Cells Urine Bacteria Ur Culture Indicated? Urine Opiates Screen Urine Fentanyl Screen Ur Barbiturates Screen U Amphetamin/Meth Scrn U Benzodiazepines Scrn U Cocaine Metab Screen U Marijuana (THC) Screen 06/16/25 06/16/25 04:23 04:23 WBC RBC Hgb Hct MCV MCH MCHC RDW Std Deviation Plt Count Neut % (Auto) Lymph % (Auto) [place] % (Auto) Eos % (Auto) Baso % (Auto) Neut # (Auto) Lymph # (Auto) [place] # (Auto) Eos # (Auto) Baso # (Auto) Immature Gran # (Auto) Absolute Nucleated RBC Immature Gran % Nucleated RBC % Sodium Potassium Chloride Carbon Dioxide Anion Gap BUN Creatinine Estim Creat Clear Calc eGFR BUN/Creatinine Ratio Glucose Estimated Ave Glu mg/dL Hemoglobin A1c Calculated Osmolality 273 L Calcium Cancelled 8.8 Corrected Calcium Cancelled Phosphorus 2.9 Magnesium 1.8 Total Bilirubin Cancelled AST Cancelled ALT Cancelled Alkaline Phosphatase Cancelled Lactate Dehydrogenase Troponin I B-Natriuretic Peptide Total Protein Cancelled Albumin Cancelled Globulin Cancelled Albumin/Globulin Ratio Cancelled Triglycerides 222 H Cholesterol 150 LDL Cholesterol, Calc 58 HDL Cholesterol 48 Cholesterol/HDL Ratio 3.1 L TSH 1.56 Ur Collection Type Urine Color Urine Clarity Urine pH Ur Specific [place] Urine Protein Urine Glucose (UA) Urine Ketones Urine Blood Urine Nitrite Urine Bilirubin Urine Urobilinogen (Auto) Ur Leukocyte Esterase Urine RBC Urine WBC Ur Squamous Epith Cells Urine Bacteria Ur Culture Indicated? Urine Opiates Screen Urine Fentanyl Screen Ur Barbiturates Screen U Amphetamin/Meth Scrn U Benzodiazepines Scrn U Cocaine Metab Screen U Marijuana (THC) Screen Quality Measures Quality Measures VTE prophylaxis Assessment & Plan Assessment Current Active Medications: Generic Name Dose Route Start Last Admin Trade Name Freq PRN Reason Stop Dose Admin Acetaminophen 650 mg 06/15/25 21:05 Acetaminophen 325 Mg Tablet PO 07/15/25 21:04 Q6H PRN PAIN OR FEVER > 101 Albuterol 2.5 mg 06/16/25 11:00 Albuterol Rt 2.5 Mg/0.5 Ml Nebu INH 07/16/25 10:59 Q4HRRT MAIDA Alyftrek Tablet 10- 0 ea 06/16/25 09:15 06/16/25 09:42 50-125 Mg PO 07/16/25 09:14 2 tablet QDAY MAIDA Administration Dextrose 25 ml 06/15/25 22:08 Dextrose 50%-Water Inj 50 Ml Syringe IV 07/15/25 22:07 Q15MIN PRN BG 50-70 responsive npo pt Dextrose 50 ml 06/15/25 22:08 Dextrose 50%-Water Inj 50 Ml Syringe IV 07/15/25 22:07 Q15MIN PRN BG <50 OR BG <70 & pt unresponsive Dornase Dereck 2.5 mg 06/16/25 19:00 Dornase Dereck 1 Mg/Ml 2.5ml Amp (Non-Formulary) INH 07/16/25 18:59 BIDRT MAIDA Glucagon 1 mg 06/15/25 22:08 Glucagon Inj 1 Mg Vial IM Q15MIN PRN BG <70, and no IV access Insulin Human Lispro 0 unit 06/16/25 11:30 Insulin Lispro (Admelog) 1 Unit/0.01 Ml Unit SC 07/16/25 11:29 AC MAIDA Protocol Lacosamide 50 mg 06/15/25 21:00 06/16/25 08:56 Lacosamide 50 Mg Tablet PO 07/15/25 20:59 50 mg BID MAIDA Administration Levetiracetam 1,500 mg 06/16/25 09:00 06/16/25 08:56 Levetiracetam 250 Mg Tablet PO 07/16/25 08:59 1,500 mg BID MAIDA Administration Loratadine 10 mg 06/16/25 09:00 06/16/25 08:56 Loratadine 10 Mg Tablet PO 07/16/25 08:59 10 mg QDAY MAIDA Administration Protocol Montelukast Sodium 10 mg 06/15/25 21:00 06/15/25 23:00 Montelukast Sodium 10 Mg Tablet PO 07/15/25 20:59 10 mg HS MAIDA Administration Ondansetron HCl 4 mg 06/15/25 21:05 Ondansetron Inj 2 Mg/Ml Inj 2 Ml IVP 07/15/25 21:04 Q6H PRN NAUSEA OR VOMITING Protocol Pancreatin 4 cap 06/16/25 08:27 Amylase/Lipase/Protease Capsule (Pancreaze) PO 07/16/25 08:26 BIDWM PRN SNACKS Pancreatin 8 cap 06/16/25 08:58 06/16/25 09:01 Amylase/Lipase/Protease Capsule (Pancreaze) PO 07/16/25 08:57 8 cap TIDWM MAIDA Administration Fluticasone/Salmeterol 1 puff 06/16/25 09:00 06/16/25 10:06 Fluticasone/Salmeterol 500/50 60 Dose Inh INH 07/16/25 08:59 1 puff BID MAIDA Administration Sodium Chloride 4 ml 06/16/25 19:00 Sodium Cl Rt [place] 3% 4 Ml Nebu (Non-Formulary) INH 07/16/25 18:59 BIDRT MAIDA Sodium Chloride 3 ml 06/16/25 10:17 Sodium Chloride Rt [place] 0.9% 3 Ml Nebu INH 07/16/25 10:16 PRN PRN SOLN Plan 39-year-old male with past medical history of cystic fibrosis, seizure disorder, DM type I was admitted for symptomatic hypoglycemia treatment management requiring frequent glucose checks. #Hypoglycemia induced seizure?resolved #Hx of Seizure (on keppra and Vimpat) * DDx would include primary seizures versus hypoglycemia induced * No postictal confusion noted at ED, patient is alert oriented x * No focal neurological deficit * GCS of 15 * In ED patient received loading dose of Keppra Plan: * Continue to maintain euglycemia * Continue home Vimpat 50 mg p.o. twice daily * Continue home Keppra 1500 mg p.o. twice daily #Cystic fibrosis * No respiratory distress noted, patient is saturating 97% on room air, lungs are clear to auscultation Plan: * Continue home medication including Pulmozyme inhaler twice daily, albuterol nebulization Q4 hourly, hypertonic saline twice daily. #DM Type 1 #Pancreatic insufficiency * Discrepancy in reported insulin dosing, initially stated 5 to 25 units, later stated 20 to 26 units of Tresiba, patient denies taking degludec * Patient is on NovoLog sliding scale which was recently increased * Last insulin dose taken prior to event * Glucose on EMS arrival 19 Plan: * Continue insulin sliding scale * Started on diet and resumed Creon 3 times daily with meals and twice daily with snacks Health maintenance: Dispo: Downgraded to telemetry, will continue insulin sliding scale, will come up with blood sugar management plan. Diet: Consistent carb, high-protein, high-fiber DVT ppx: None GI ppx: None IV lines: 2 pIV Espinoza: No Code status: FULL CODE Patient was seen and discussed with my attending physician Dr. Nereida OTTO and my senior resident Dr. Eloina OTTO PGY-2. Hollis Mayorga DO PGY-1.
[2025-06-16] MEDS: ALBUTEROL RT 2.5 MG/0.5 ML NEBU INH ×4 (11:44→23:56)
[2025-06-16] MEDS: SODIUM CL RT SOL 3% 4 ML NEBU (NON-FORMULARY) INH (11:51)
[2025-06-16] MEDS: INSULIN LISPRO (AdmeLOG) 1 UNIT/0.01 ML UNIT SC ×2 (11:58→17:21)
--- NOTE | 2025-06-16 15:29 | PC.RT ---
CPT done at 0717 however the intervention lists it as not done. this is a repeat charting to raúl it as done. see original charting at 0717 for documentation.
[2025-06-16] MEDS: MONTELUKAST SODIUM 10 MG TABLET PO (20:46)
--- NOTE | 2025-06-16 22:59 | PC.NURSE ---
A rt said that a cystic fibrosis patient needs to be on reverse isolation. I couldnt find it in our isolation protocol book. I asked charge nurse, Jacki, and Dr. Kelley. Dr Kelley said it was not needed but to email infection control to get confirmation. I sent an email to Kendy in infection control.
--- NOTE | 2025-06-16 23:27 | PC.NURSE ---
Spoke to Dr Kelley regarding patient's blood glucose of 220. No new orders.
[2025-06-17] VITALS (12 sets, daily range): BP systolic 123–137; BP diastolic 70–94; PULSE 81–103; RESP 12–95; TEMP 35.9–37.3; O2SAT 95–99; BMI 30.9
[2025-06-17 06:02] LABS: Basophils # (Auto) 0.0 Thou/mm3 (0.0-0.2); Basophils % (Auto) 0 % (0-2.5); Eosinophils # (Auto) 0.2 Thou/mm3 (0.0-0.5); Eosinophils % (Auto) 2 % (0-10); Hematocrit 43.0 % (41.0-53.0); Hemoglobin 14.6 g/dL (13.5-16.0); Immature Granulocytes Auto 0.03 Thou/mm3 (0.00-0.00); Lymphocytes # (Auto) 2.6 Thou/mm3 (1.0-4.8); Lymphocytes % (Auto) 36 % (10-50); Mean Corpuscular HGB Conc 34.0 g/dl (31.0-37.0); Mean Corpuscular Hemoglobin 29.9 pg (25.0-35.0); Mean Corpuscular Volume 88 fL (80-100); Monocytes # (Auto) 0.6 Thou/mm3 (0.0-0.8); Monocytes % (Auto) 8 % (0-12); Neutrophils # (Auto) 3.9 Thou/mm3 (1.8-7.7); Neutrophils % (Auto) 53 % (37-80); Nucleated Red Blood Cell # 0.00 Thou/mm3 (0.00-0.00); Nucleated Red Blood Cell % 0 /100 WBC (0); Platelet Count 278 Thou/mm3 (140-440); RDW Standard Deviation 39.9 fL (35.1-43.9); Red Blood Count 4.88 Miln/mm3 (4.50-5.90); White Blood Count 7.3 Thou/mm3 (3.8-10.6)
[2025-06-17 06:29] LABS: Anion Gap 12 (7-16); BUN/Creatinine Ratio 18 Ratio (12-20); Blood Urea Nitrogen 14 mg/dL (9-23); Calcium 9.2 mg/dL (8.3-10.6); Carbon Dioxide 24.5 mMol/L (20.0-31.0); Chloride 101 mMol/L (98-107); Creatinine (Component) 0.8 mg/dL (0.6-1.3); Estimated Creatinine Clearance 117.4 mL/min (>60); Glucose 155 mg/dL (74-106); Magnesium 1.8 mg/dL (1.6-2.6); Osmolality,Calculated 277 (275-295); Phosphorous 3.6 mg/dL (2.4-5.1); Potassium 4.0 mMol/L (3.4-5.1); Sodium 137 mMol/L (136-145); eGFR > 60 See Note
[2025-06-17] MEDS: INSULIN LISPRO (AdmeLOG) 1 UNIT/0.01 ML UNIT SC ×2 (07:33→11:32)
[2025-06-17] MEDS: AMYLASE/LIPASE/PROTEASE CAPSULE (Pancreaze) 8 CAP PO ×2 (07:33→11:59)
[2025-06-17] MEDS: SODIUM CHLORIDE RT SOL 0.9% 3 ML NEBU INH ×2 (08:37→12:23)
[2025-06-17] MEDS: SODIUM CL RT SOL 3% 4 ML NEBU (NON-FORMULARY) INH (08:37)
[2025-06-17] MEDS: FLUTICASONE/SALMETEROL 500/50 60 DOSE INH 1 PUFF INH (08:37)
[2025-06-17] MEDS: ALBUTEROL RT 2.5 MG/0.5 ML NEBU INH ×2 (08:37→12:24)
[2025-06-17] MEDS: DORNASE ALFA 1 MG/ML 2.5 MG INH (08:37)
[2025-06-17] MEDS: LACOSAMIDE 50 MG TABLET PO (08:38)
[2025-06-17] MEDS: [UNRECOGNIZED DRUG - OTHER] PO (08:39)
[2025-06-17] MEDS: Magnesium Sulfate 2 GM Ivpb 2 GM/50 ML BAG IV (09:50)
--- NOTE | 2025-06-17 11:49 | PC.SS ---
Patient is alert/oriented. Patient was able to verify demographics. Patient resides with his . Patient was admitted for hypoglycemia. He states his assists with all ADL's. Patient has dx: Diabetes and uses a glucometer machine and has a sensor. Patient follows with his Hospice Director in [place]. Patient follows his Cost Control Supervisor in [place] and last appt was 2 months ago. Patient is pending placement on the transplant list. Patient states he uses a nebulizer machine, chest compression vest, and nocturnal 02. Patient does not possess a wheelchair or walker. He is independent ambulating. PCP: [facility]. Patient states last appt. was last month and he does not have a specific physician. Last appt. was last month. Pharmacy: [facility]. Patient states they are placing a referral for a Neurologist for his seizures. provides transportation assistance. Patient will need additional resources for home. Alt medical decision maker: , eMlia Roberson [phone] D/c plan is to return home,
--- NOTE | 2025-06-17 17:21 | ESDS_ITS ---
<Statement entered by Ingrid Padron MD - 06/30/25 09:05> I reviewed above note and agree with findings and plans. I have also personally examined the patient with medicine team and went over assessment and plan with medical team including international nurse and resident physician. Planned Discharge Date 06/17/25 DS: Providers Provider Date of admission: 06/15/25 21:05 Primary care physician: Jamaica Weber PA-C Admitting Provider: Marge Rosales MD Attending Provider on Admission: Marge Rosales MD Consults: 06/16/25 08:47 Referral Registered Dietitian Routine Comment: Cystic fibrosis, Pancreatic insufficiency 06/16/25 09:52 Referral Registered Dietitian Routine Comment: Attending Provider on DC: Ingrid Padron MD Discharging Provider: RESIDENT Krzysztof DS: Diagnosis Discharge Diagnosis (1) Hypoglycemia: Status: Acute (2) Seizure: Status: Acute Problem List Completed Was Problem List Reviewed/Reconciled?: Yes Hospital Course Hospital Course Hospital course: Hospital Course: The patient is a 39-year-old male with a past medical history significant for seizure disorder (on Keppra and Vimpat) and cystic fibrosis, who presented to the ED after a witnessed seizure and loss of consciousness. The patient was awake, alert, and non-toxic on ED arrival. He reported being followed by endocrinology in [place] for diabetes management. Recently, due to persistently elevated glucose levels (~300 mg/dL), his Tresiba dose was increased from 20 to 28 units, and NovoLog sliding scale was also adjusted. These medication changes occurred on Monday; he took his first 28-unit dose of Tresiba on Monday without issues. However, on Monday morning, after taking both Tresiba and NovoLog, he went out with friends and subsequently developed the symptoms described above. However, upon reviewing the home medication list, it is difficult to determine the exact insulin regimen and the extent of the recent dosage adjustments. Initially, the patient reported that the dose was increased from 5 units to 25 u nits, but in a subsequent conversation, he stated that the dose was changed from 20 units to 26 units. This needs to be clarified with his washing machine assembler (Dr. White). Thepaln is to follow up with the endocrinology office to obtain accurate medication records and adjust the insulin regimen accordingly. Initially, the hospitalist team was consulted for floor admission. However, due to the severity of the hypoglycemia, recent seizure, and need for frequent glucose monitoring, the decision was made to admit to the ICU for close monitoring and continued management of symptomatic hypoglycemia. Overnight in the ICU the patient had no events. Input 1489, output 11.2, balance 369 cc. Blood glucose remained stable between 130?150s overnight. This morning patient says he feels well, alert and oriented x 3. Denies any chest pain/palpitations, diaphoresis or shortness of breath. Labs showed NA 137, K4.6, glucose 127. Resumed patient home medication including Creon, Pulmozyme inhaler, albuterol nebs Q4 hourly and hypertonic saline nebs twice daily. The patient was clinically stable and was downgraded to telemetry. Upon evaluation by the hospital team, the patient's glucose is still uncontrolled at 254. There remained discrepancy in how the patient is managing his diabetes, as the patient denied taking degludec. Will continue insulin sliding scale and come up with a regimented insulin plan for the patient. The patient's blood glucose was controlled using sliding scale insulin. He will be discharged on a regimen of long and short acting insulin to control his blood sugar. Problem List: #Hypoglycemia induced seizure?resolved #Hx of Seizure (on keppra and Vimpat) #Cystic fibrosis #Diabetes mellitus type 1 #Pancreatic insufficiency Discharge Instructions: - Take 5 units of insulin degludec daily with the following sliding scale insulin: * For blood glucose 71-119: 0 units * For blood glucose 120-150: 2 units * For blood glucose 150-200: 4 units * For blood glucose 201-250: 6 units - Continue taking all other home medications as prescribed - Follow-up with PCP within 1-2 weeks of discharge - If you do not have a PCP, you can follow-up at the [facility] - Return to ED if symptoms worsen The patient was seen and discussed with my attending physician Dr. Padron my senior resident Dr. Eloina OTTO PGY-2. Hollis Mayorga DO PGY-1 Time Spent with Patient Time attestation: Total time spent providing and/or coordinating discharge services: More than 50% Time spent: Greater than 30 minutes Exam Vital Signs Temp Pulse Resp BP Pulse Ox O2 Del Method 96.9 F 98 12 123/83 97 Room Air 06/17/25 16:06 06/17/25 16:06 06/17/25 16:06 06/17/25 16:06 06/17/25 16:06 06/17/25 16:06 Narrative Exam General: Awake and in no acute distress. Conversational and non-toxic appearing. Neurologic: GCS 15. Alert and oriented x3, no gross neurological deficit, and patient able to move all 4 extremities. HEENT: Normocephalic, atraumatic, mucous membranes moist. Pupils reactive to light. Heart: Regular rate and rhythm, normal S1 and S2, no murmurs. Lungs: Decreased breath sounds in the lung bases bilaterally. No wheezing or crackles. Abdomen: Soft, nondistended, nontender, positive bowel sounds. No guarding or re bound tenderness. Extremities: No edema. 2+ radial and dorsalis pedis pulses bilaterally. Skin: Warm. Dry. No rash or ecchymoses. Discharge Plan Plan Patient Disposition: HOME (Self Care) Patient condition on transfer: Stable Care Plan Goals: - Take 5 units of insulin degludec daily with the following sliding scale insulin: * For blood glucose 71-119: 0 units * For blood glucose 120-150: 2 units * For blood glucose 150-200: 4 units * For blood glucose 201-250: 6 units - Continue taking all other home medications as prescribed - Follow-up with PCP within 1-2 weeks of discharge - If you do not have a PCP, you can follow-up at the [facility] - Return to ED if symptoms worsen Prescriptions/Referrals Prescriptions/Med Rec: New (DME) FreeStyle Brenda 3 Plus Sensor Device See Rx Instructions .Route Qty: 1 3RF Rx Instructions: As directed insulin degludec 100 unit/mL (3 mL) insulin pen 5 unit subcut QDAY Qty: 15 0RF (DME) lancets Misc See Rx Instructions .ROUTE .MEDSUPPLY Qty: 100 0RF Rx Instructions: Test blood sugars three times daily before meals ICD 10: E11.65 (DME) Blood Glucose Test Strip See Rx Instructions .ROUTE .MEDSUPPLY Qty: 50 0RF Rx Instructions: Test blood sugars three times daily before meals ICD 10: E11.65 insulin asp prt-insulin aspart [Novolog Mix 70-30FlexPen U-100] 100 unit/mL (70-30) insulin pen 1 unit subcut TIDWM Qty: 15 1RF Rx Instructions: Blood sugar < 70 -> treat low blood glucose with snacks/oral intake Take insulin degludec in addition to following sliding scale insulin according to following blood sugars: - 71-119: 0 units - 120-150: 2 units - 151-200: 4 units - 201-250: 6 units - 251-300: 8 units - 301-350: 10 units - > 351: 12 units Continued Albuterol Sulfate HFA (INHALER) (PROVENTIL HFA (INHALER)) 8.5 GM HFA.AER.AD 2 puff Inhalation Q6HR PRN (Reason: BREATHING) Qty: 0 Amylase/Lipase/Protease (Trace Mccormick 24,000 Units Capsule) 1 EACH CAPSULE. 4 tab PO QDWM PRN (Reason: snack) Qty: 0 levetiracetam [Keppra] 250 MG tablet 750 mg PO BID Qty: 0 montelukast [Singulair] 10 MG tablet 10 mg PO HS Qty: 0 albuterol sulfate [ProAir HFA] 8.5 GM HFA aerosol inhaler 2 puff Inhalation TID Qty: 0 Pulmozyme 1 MG/ML solution 2.5 mg Inhalation QDAY Qty: 0 Tobramycin NEB * (DAYSI 300 MG/5 ML *) 300 MG/5 ML AMPUL.NEB. 300 mg Inhalation BID Qty: 0 Patient Comments: taking every other month, off right now Amylase/Lipase/Protease (Trace Mccormick 24,000 Units Capsule) 1 EACH CAPSULE. 8 cap PO TIDWM Qty: 0 quetiapine 100 mg tablet 100 mg PO .qhs Patient Comments: TAKE 1 TABLET BY MOUTH ONCE A DAY Alyftrek 10-50-125 mg tablet 2 tab PO QDAY fluticasone propion-salmeterol [Advair Diskus] 500-50 mcg/dose blister with device 1 inh inhalation BID All Day Allergy (cetirizine) 10 mg capsule 10 mg PO QDAY lacosamide [Vimpat] 50 mg tablet 50 mg PO BID sodium chloride 0.9 % aerosol 5 ml inhalation Q12H Patient Comments: breathing treatment Held insulin aspart U-100 [Novolog FlexPen U-100 Insulin] 100 unit/mL (3 mL) insulin pen 20 unit subcut TID Hold Instructions: Resume on 07/01/25. Hold until you see your washing machine assembler insulin degludec [Tresiba FlexTouch U-100] 100 unit/mL (3 mL) insulin pen 40 unit subcut QAM Hold Instructions: Resume on 07/01/25. Hold until you see your washing machine assembler Discontinued metformin [Glucophage] 500 MG tablet 1,000 mg PO BIDAC Qty: 0 naproxen [Naprosyn] 500 MG tablet 500 mg PO BIDWM Qty: 0 Patient Comments: PRN PAIN Hydrocodone/Acetaminophen (Lortab 10-325 mg Tablet) 1 EACH tablet 1 ea PO Q4HR Qty: 0 Nutritional Formula (Lactose Free) * (GLUCERNA *) 237 ML liquid 1 can PO QID 30 Days Qty: 0 meloxicam 7.5 mg tablet 7.5 mg PO QDAY Qty: 10 0RF Referrals: Jamaica Weber PA-C [Primary Care Provider] Patient/Caregiver Discharge Instructions Education Materials: Hypoglycemia (Low Blood Sugar), Healthy Meals for Diabetes, Getting Support When You Have Diabetes, Glucose Check Steps, Hypoglycemia Steps, Foot Care Diabetes Steps Print Language: Lao Stand Alone Forms: Nadine Award Info., Patient Portal Info Letter Discharge Order Discharge Orders: Discharge (Routine); Ordered 06/17/25 Ordered By: Boni Duvall Quality Discharge Quality Measures none
[2025-06-19 07:03] LABS: C-Peptide* 0.17 ng/mL (0.80-3.85)
== END 2025-06-17 16:15 | disposition home or self-care (01) | DRG 101 ==
LOC: SERX 20:19 → SERHOLD 21:43 → S2SX 22:38 → S2NX 06-16 11:55
PROVIDERS: Registered Nurse General Practice; Student in an Organized Health Care Education/Training Program; Admitting Provider Student in an Organized Health Care Education/Training Program; Emergency Provider Emergency Medicine; PCP Physician Assistant; Visit Provider Student in an Organized Health Care Education/Training Program
DX: G40.909 Epilepsy, unspecified, not intractable, without status epilepticus (principal); E84.9 Cystic fibrosis, unspecified; E10.65 Type 1 diabetes mellitus with hyperglycemia; E10.649 Type 1 diabetes mellitus with hypoglycemia without coma; E87.6 Hypokalemia; D72.829 Elevated white blood cell count, unspecified; K86.89 Other specified diseases of pancreas; T38.3X5A Adverse effect of insulin and oral hypoglycemic [antidiabetic] drugs, initial encounter; Z76.82 Awaiting organ transplant status; Z88.1 Allergy status to other antibiotic agents; Z79.4 Long term (current) use of insulin; Z79.899 Other long term (current) drug therapy; Z79.84 Long term (current) use of oral hypoglycemic drugs
CPT/HCPCS: 36415; 80048; 80053; 80061; 80307; 81001; 83036; 83615; 83735; 83880; 84100; 84132; 84443; 84484; 84681; 85025; 87081; 94640; 94664; 94667; 96361; 96365; 96372; 96374; 99284; J1644; J1815; J1953; J3475; J3480; J7042; J7639; A9270